=== PATIENT | female | born 1955 | race Caucasian/White ===

== ENCOUNTER 2016-06-13 08:47 | Emergency (ER) | payer MEDICAID, OTHER ==
[2016-06-13 09:01] VITALS: RESP 16; TEMP 97.5
--- NOTE | 2016-06-13 10:30 | EDPHY ---
H & P Stated Complaint: [facility] fall Time Seen by Provider: 06/13/16 09:35 HPI/ROS: CHIEF COMPLAINT: right shoulder pain post mechanical fall HISTORY OF PRESENT ILLNESS: 60-year-old female arrives via ambulance complaining of acute right shoulder and humerus pain after she sustained a mechanical fall this morning. States that she slipped on the grass and landed on her right shoulder. No head injury. No loss of consciousness. This was a mechanical not a syncopal episode. No chest pain or dyspnea. No back pain or or C-spine pain. Patient has multiple medical comorbidities and has recently moved to [place] from [place], has not established primary care or primary mental health care. She has a history of schizophrenia, diabetes, COPD, home oxygen dependent. She has been borrowing a friend's oxygen concentrator. She recently became homeless and therefore moved to [place] to live with a family member.Denies suicidal homicidal ideation PRIMARY CARE PROVIDER: none locally establish REVIEW OF SYSTEMS: A ten point review of systems was performed and is negative with the exception of the items mentioned in the HPI PAST MEDICAL & SURGICAL HISTORY: Diabetes. Schizophrenia. Hypertension. Soup ED. Home oxygen dependent. SOCIAL HISTORY:daily cigarette smoker PHYSICAL EXAM (Prior to examination, patient consented to physical exam, hands were washed and my usual and customary physical exam procedures followed) 1) GENERAL: obese, alert and oriented. Appears to be in no acute distress. 2) HEAD: Normocephalic, atraumatic 3) HEENT: Pupils equal, round, reactive to light bilaterally. Sclera anicteric. 4) NECK: Full range of motion, no meningeal signs. 5) LUNGS: Clear auscultation bilaterally, no wheezes, no rhonchi, no retractions. 6) HEART: Regular rate and rhythm, no murmur, no heave, no gallop. 7) ABDOMEN: No guarding, no rebound, no focal tenderness, negative McBurney's, negative Thompson's, negative Rovsing's, negative peritoneal sign, 8) MUSCULOSKELETAL:Right upper extremity: Tender to palpation proximal humerus and shoulder. Limited range of motion secondary to pain. Intact skin. No gross deformity or step-off. Distal pulses radial ulnar median nerve function intact. 9) BACK: no visual or palpable abnormality. 10) SKIN: No rash, no petechiae. 11) Psychiatric: Patient is oriented X 3, there is no agitation. DIFFERENTIAL DIAGNOSIS: in no particular include but limited to fracture, dislocation, sprain, strain - Personal History Current Tetanus Diphtheria and Acellular Pertussis (TDAP): Unsure - Medical/Surgical History Hx Asthma: Yes Hx Chronic Respiratory Disease: Yes Hx Diabetes: Yes Hx Cardiac Disease: No Hx Renal Disease: No Hx Cirrhosis: No Hx Alcoholism: No Hx HIV/AIDS: No Hx Splenectomy or Spleen Trauma: No - Social History Smoking Status: Current every day smoker Constitutional: Initial Vital Signs Temperature (C) 36.4 C 06/13/16 08:59 Heart Rate 74 06/13/16 08:59 Respiratory Rate 16 06/13/16 08:59 Blood Pressure 100/62 06/13/16 08:59 O2 Sat (%) 84 L 06/13/16 08:59 O2 Delivery Mode Room Air Allergies/Adverse Reactions: aspirin Allergy (Verified 06/13/16 09:06) gabapentin Allergy (Verified 06/13/16 09:05) ibuprofen Allergy (Verified 06/13/16 09:07) pregabalin [From Lyrica] Allergy (Verified 06/13/16 09:06) Home Medications: Medication Instructions Recorded ALPRAZolam 0.5 mg PO BID 06/13/16 ALPRAZolam [Xanax 0.5 MG (*)] 0.5 mg PO BID #4 tab 06/13/16 Asenapine Maleate [Saphris] 5 mg SL BID #4 tab.subl 06/13/16 Atorvastatin Calcium 20 mg PO DAILY 06/13/16 Diclofenac 0.1% 2 gm TD QID PRN 06/13/16 Losartan Potassium 50 mg PO DAILY 06/13/16 Metformin 1000 mg 1,000 mg PO BID 06/13/16 Mometasone Furoate 50 mcg IH 06/13/16 Proair Hfa 90 mcg IH Q4-6PRN PRN 06/13/16 Qvar 8 mcg IH 06/13/16 Ranitidine HCl 150 mg PO BID 06/13/16 Saphris 5 mg SL BID 06/13/16 traZODONE 50MG (*) 50 mg PO HS 06/13/16 traZODone [traZODONE 50MG (*)] 50 mg PO HS #2 tab 06/13/16 Medical Decision Making - Diagnostics Imaging Results: Imaging Impressions Humerus X-Ray 06/13/16 10:02 Impression: Acute partially comminuted displaced fracture of the proximal shaft of the right humerus, as-detailed above. RIGHT HUMERUS (2 Views, at 10:15 AM): Again, there is a laterally displaced fracture involving the proximal one-third humeral diaphyseal shaft. The fracture lines extend to the surgical neck. The more distal aspects of the humerus are intact, and the visualized portions of the elbow are unremarkable. Impression: Displaced proximal humeral diaphyseal fracture, extending to the surgical neck. Shoulder X-Ray 06/13/16 10:02 Impression: Acute partially comminuted displaced fracture of the proximal shaft of the right humerus, as-detailed above. RIGHT HUMERUS (2 Views, at 10:15 AM): Again, there is a laterally displaced fracture involving the proximal one-third humeral diaphyseal shaft. The fracture lines extend to the surgical neck. The more distal aspects of the humerus are intact, and the visualized portions of the elbow are unremarkable. Impression: Displaced proximal humeral diaphyseal fracture, extending to the surgical neck. Procedures: Procedure: Fracture treatment. The patient had x-rays taken and I confirmed that the patient had a fractured proximal humerus. an upper extremity sling was applied by ER automotive exhaust emissions technician. After application of the splint I returned and re-examined the patient. The splint was adequately immobilizing the joint and distal to the splint the patient's circulation and sensation were intact. Patient shows no signs of compartment syndrome. Was given orthopedic precautions. ED Course/Re-evaluation: 10:30 a.m.: Phone consultation with orthopedic SALTY Arellano who reviewed the patient's images remotely and recommended sling and follow up in office next week (today is ). Case discussed Dr. Loulou Mckeon in ER. 10:55 a.m.: Re-evaluation. Patient placed in sling. She feels comfortable being discharged. The gearcase assembler has ranged for appointment with orthopedics for next week and for [facility] ([facility]). In the meantime patient requests a refill of her alprazolam, Saphris, trazodone. I have given her sufficient supply until her appointment [facility]. Regarding her home oxygen she currently is borrowing a friend's oxygen concentrator and can speak to the [facility] provider about obtaining further home oxygen supplies at her appointment tomorrow. Departure - Departure Disposition: Home, Routine, Self-Care Clinical Impression: Medication refill Proximal humerus fracture Qualifiers: Encounter type: initial encounter Fracture type: closed Fracture morphology: other fracture Fracture alignment: displaced Laterality: right Qualified Code(s) : S42.291A - Other displaced fracture of upper end of right humerus, initial encounter for closed fracture Condition: Good Instructions: Arm Fracture in Adults (ED) Additional Instructions: You have an appointment at [facility], on June 13, at 11:40. [address] [place] [address]. . Please arrive 20 minutes early, to fill out paperwork. You also have an appointment on June 18, at 0845, at [facility]. [id number], [phone]. Please arrive early to fill out paperwork. In addition, bring Medicaid information, and identification. Referrals: Jennifer Arellano MD [Medical Doctor] - 06/18/16 8:45 am (You have an appointment with Dr. Arellano on 06/18/2016 at 8:45 a.m.. Please keep this appointment. Wear your sling until then.) [facility],. [Clinic] - 06/14/16 11:40 am (Please keep this appointment at the [facility]. Arrive at least 15 minutes early to complete paperwork) Prescriptions: ALPRAZolam [Xanax 0.5 MG (*)] 0.5 mg PO BID #4 tab Asenapine Maleate [Saphris] 5 mg SL BID #4 tab.subl traZODone [traZODONE 50MG (*)] 50 mg PO HS #2 tab
[2016-06-13 11:18] VITALS: BP 90/58; PULSE 67; O2SAT 93
== END 2016-06-13 11:16 | disposition home or self-care (01) ==
LOC: EDUNIT#
DX: S42.291A Other displaced fracture of upper end of right humerus, initial encounter for closed fracture (principal); E11.9 Type 2 diabetes mellitus without complications; I10 Essential (primary) hypertension; F17.210 Nicotine dependence, cigarettes, uncomplicated; J44.9 Chronic obstructive pulmonary disease, unspecified; Z76.0 Encounter for issue of repeat prescription; Z79.84 Long term (current) use of oral hypoglycemic drugs; W01.198A Fall on same level from slipping, tripping and stumbling with subsequent striking against other object, initial encounter
CPT/HCPCS: A4565

== ENCOUNTER → 2016-06-21 | Outpatient (CLI) | payer MEDICAID | LOC: FIMAGING 12:39 | PROVIDERS: ATTEND Physician Assistant | DX: S42.291A Other displaced fracture of upper end of right humerus, initial encounter for closed fracture (principal); X58.XXXA Exposure to other specified factors, initial encounter ==

== ENCOUNTER 2016-06-24 09:07 | Observation (INO) | payer MEDICAID ==
[2016-06-24] MEDS ORDERED: ROPIVACAINE HCL 20 MG/10 ML INJ EP ONE (09:17)
[2016-06-24] MEDS ORDERED: ceFAZolin 2 GM/DEXTROSE 100 ML IV ONE (09:30)
--- NOTE | 2016-06-24 10:14 | CPEKG ---
Heart Rate: 73 RR Interval: 822 P-R Interval: 148 QRSD Interval: 84 QT Interval: 400 QTC Interval: 441 P Sheridan: 52 QRS Sheridan: 73 T Wave Sheridan: 16 EKG Severity - NORMAL ECG - EKG Impression: SINUS RHYTHM Electronically Signed By: Jose Meadows 25-Jun-2016 06:51:28
[2016-06-24] MEDS ORDERED: fentaNYL 100 MCG/2 ML INJ ONE ×3 (10:48→13:44)
[2016-06-24] MEDS ORDERED: ONDANSETRON 4 MG/2 ML VIAL ONE (10:49)
[2016-06-24] MEDS ORDERED: ROPIVACAINE HCL 150 MG/30 ML INJ ONE (10:49)
[2016-06-24] MEDS ORDERED: PROPOFOL 200 MG/20 ML VIAL ONE (10:49)
[2016-06-24] MEDS ORDERED: METOCLOPRAMIDE 10 MG/2 ML VIAL ONE (10:49)
[2016-06-24] MEDS ORDERED: MIDAZOLAM 2 MG/2 ML VIAL ONE (10:53)
[2016-06-24] MEDS ORDERED: METOPROLOL TARTRATE 5 MG/5 ML INJ ONE (11:47)
[2016-06-24] MEDS ORDERED: ceFAZolin 1 GM VIAL ONE (13:01)
[2016-06-24] MEDS ORDERED: HYDROmorphONE/DILAUDID 1 MG/ML SYR IVP PRN (13:16)
[2016-06-24] MEDS ORDERED: ONDANSETRON 4 MG/2 ML VIAL IVP PRN (13:16)
[2016-06-24] MEDS ORDERED: ACETAMINOPHEN 325 MG TAB PO PRN (13:16)
[2016-06-24] MEDS ORDERED: PROAIR 90 MCG IH PRN (13:20)
[2016-06-24] MEDS ORDERED: D5W 1/2 NS W/ 20 KCl/L 1,000 ML IV SCH (13:30)
--- NOTE | 2016-06-24 13:58 | GOP ---
[f rep st] OPERATIVE REPORT DATE OF OPERATION: SURGEON: Jeremiah Diaz MD COOK HELPER DESSERT: Vinh Maloney PA-C. Medically required for positioning of the arm during humeral nail and open rotator cuff repair. PREOPERATIVE DIAGNOSIS: 1. Right comminuted proximal humerus fracture. 2. Rotator cuff tear. POSTOPERATIVE DIAGNOSIS: 1. Right comminuted proximal humerus fracture. 2. Rotator cuff tear. PROCEDURE PERFORMED: 1. Open rotator cuff repair. 2. Intramedullary nail multilock Synthes humeral nail, right humerus. FINDINGS: ESTIMATED BLOOD LOSS: Minimal. INDICATIONS: The patient is a 60-year-old female who had a mechanical fall. Had x-rays and a CT sc an that showed proximal humerus fracture with a split proximal humeral shaft fracture. Neurovascula rly intact. CT scan showed greater tuberosity linear fracture that was nondisplaced. The patient e lected for operative intervention of unstable humerus fracture. DESCRIPTION OF PROCEDURE: The patient was identified in the preoperative holding area. Her mother was available at the bedside. All questions were answered. The right upper extremity was identifie d. She had bruising medially. She had intact EPL, FPL, interossei, locks tender, wrist extension, and wris t flexion. The patient brought into the operating room. Beach chair position. Interscalene block. General an esthesia. All extremities well padded. The right upper extremity was prepped and draped in usual s terile fashion. Surgical time-out was performed. Anterolateral based incision was made. Sharp dis section down to the deltoid. Deltoid raphe split. Rotator cuff had a rotator cuff tear, and we use d this tear to access and opened up the tear of the supraspinatus to access the central portion of t he articular side of the humeral head on the superior articular surface. We put 2 tagging stitches for repair later. On fluoroscopic view from the contralateral side with the rainbow view, we were a ble to get internal and external rotation views and had nice central position on the humeral head. We placed a golf ball tipped guidewire. Tried it under closed reduction techniques, however, the fr acture fragments were overlapping, so we made a small incision laterally. Blunt dissection down to the humerus and guided the guidewire in to the distal fragment. We used GetFresh reamers 6, 7, 7.5, 8 and went to the Synthes reamers 8.5 reamer. We placed a 7 nail after we measured this to about 19 5. We placed multiple screws in the proximal portion and a single screw distally. We confirmed on fluoroscopic views reduction of the fracture. No evidence of further splitting of the greater tuber osity or of the head. All wounds were copiously washed out with 500 cc of warm normal saline. 2-0 PDS for the bigger wounds, 3-0 Monocryl for the smaller wounds and nael. Xeroform, 4 x 4's, ABD, and Medipore tape applied. Another gram of Ancef was given postop. IMPLANTS USED: A Synthes multilock humeral nail. COMPLICATIONS: None. DISPOSITION: Extubated to the PACU in stable condition. /[id number]/MODL
[2016-06-24] MEDS ORDERED: ALBUTEROL 60 PUFFS/8 GM MDI IH PRN (14:44)
[2016-06-24] MEDS: HYDROCODONE/APAP 5/325 TAB PO PRN (14:56)
[2016-06-24] MEDS: metFORMIN HCL 500 MG TAB PO SCH (18:29)
[2016-06-24] MEDS: ceFAZolin 2 GM/DEXTROSE 100 ML IV SCH (18:29)
[2016-06-24] MEDS: KETOROLAC 30 MG/1 ML SDV IVP SCH ×2 (18:30→23:07)
[2016-06-24] MEDS: DOCUSATE SODIUM 100 MG CAP PO SCH (19:42)
[2016-06-24] MEDS: FAMOTIDINE 20 MG TAB PO SCH (19:43)
[2016-06-24] MEDS ORDERED: METFORMIN 1000 MG PO SCH (21:00)
[2016-06-24] MEDS ORDERED: MOMETASONE FUROATE 50 MCG IH SCH (21:00)
[2016-06-24] MEDS ORDERED: SAPHRIS 5 MG SL SCH (21:00)
[2016-06-24] MEDS ORDERED: NASONEX EACHNARE SCH (21:00)
[2016-06-24] MEDS ORDERED: TRAZODONE 50 MG PO SCH (21:00)
[2016-06-24] MEDS ORDERED: QVAR IH SCH (21:00)
[2016-06-24] MEDS ORDERED: ASENAPINE MALEATE 5 MG SUBLINGUAL TAB SL SCH (21:00)
[2016-06-24] MEDS ORDERED: traZODone 50 MG TAB PO SCH (21:00)
[2016-06-24] MEDS ORDERED: RANITIDINE HCL 150 MG PO SCH (21:00)
[2016-06-24] MEDS ORDERED: MOMETASONE FUROATE 50 MCG EACHNARE SCH (21:00)
[2016-06-24] MEDS: BECLOMETHASONE QVAR 80 MDI IH SCH (21:35)
[2016-06-24] MEDS: AZELASTINE NASAL MDI EACHNARE SCH (23:07)
[2016-06-24] MEDS: ASENAPINE MALEATE 5 MG SUBLINGUAL TAB SL SCH (23:08)
[2016-06-25] MEDS: ceFAZolin 2 GM/DEXTROSE 100 ML IV SCH (02:51)
[2016-06-25] MEDS: KETOROLAC 30 MG/1 ML SDV IVP SCH ×2 (05:23→11:56)
[2016-06-25 07:10] VITALS: PULSE 97; RESP 16; TEMP 98.7; O2SAT 96
[2016-06-25] MEDS: HYDROCODONE/APAP 5/325 TAB PO PRN ×2 (07:34→13:46)
[2016-06-25] MEDS ORDERED: LOSARTAN POTASSIUM 50 MG TAB PO SCH (09:00)
[2016-06-25] MEDS ORDERED: LOSARTAN POTASSIUM 50 MG PO SCH (09:00)
[2016-06-25] MEDS ORDERED: FLUoxetine 20 MG CAP PO SCH (09:00)
[2016-06-25] MEDS ORDERED: ATORVASTATIN CALCIUM 20 MG PO SCH (09:00)
[2016-06-25] MEDS ORDERED: ENOXAPARIN 40 MG/0.4 ML SYR SC SCH (09:00)
[2016-06-25] MEDS: metFORMIN HCL 500 MG TAB PO SCH (09:06)
[2016-06-25] MEDS: FAMOTIDINE 20 MG TAB PO SCH (09:08)
[2016-06-25] MEDS: DOCUSATE SODIUM 100 MG CAP PO SCH (09:08)
[2016-06-25] MEDS: ASENAPINE MALEATE 5 MG SUBLINGUAL TAB SL SCH (09:08)
[2016-06-25] MEDS: AZELASTINE NASAL MDI EACHNARE SCH (09:10)
[2016-06-25] MEDS: BECLOMETHASONE QVAR 80 MDI IH SCH (09:10)
[2016-06-25 09:11] VITALS: BP 117/72
--- NOTE | 2016-06-25 11:15 | SOAPPROG ---
[facility]NA[facility] Progress Note Assessment/Plan: Assessment: 60 yo female pod #1 s/p right humerus ORIF IMN -discharge home today -continue incentive spirometry -continue NWB RUE, may do pendulum swings -continue flight crew time clerk sling use -f/u w/ dr. hansen or staff in 1 week for recheck -pain medications as per patients folder from [facility] Subjective: Patient reports no issues overnight, slept well, pain is well controlled, denies cp/sob. denies numbness/tingling. voiding freely and passing gas, but no BM yet Objective: Vital Signs Temp Pulse Resp BP Pulse Ox 37.1 C 97 16 117/72 96 06/25/16 07:10 06/25/16 07:10 06/25/16 07:10 06/25/16 09:10 06/25/16 07:10 06/24/16 06/25/16 06/26/16 05:59 05:59 05:59 Intake Total 2410 Output Total 450 650 Balance 1960 -650 dressings c/d/i, appropriately ttp over surgical sites w/ intact sensation over deltoid/axilla, full elbow rom and full wrist/digital rom, including wrist extension, radial/ulnar pulse 2+ - Pending Discharge Pending Discharge Within 24 Hours: Yes Pending Discharge Date: 06/26/16 Pending Discharge Time: 11:00 Physical Exam - Physical Exam General Appearance: WD/WN, alert, no apparent distress ICD10 Worksheet Patient Problems: Problems Problem Status Onset Right humeral fracture Acute - ICD10 Problem Qualifiers (1) Right humeral fracture Qualifiers: Encounter type: subsequent encounter Humerus Location: proximal Fracture type: closed Fracture morphology: F Fracture alignment: F Salter-Han Fracture Type: S Fracture healing: F
[2016-06-25] MEDS ORDERED: ATORVASTATIN CALCIUM 20 MG TAB PO SCH (22:00)
== END 2016-06-25 14:09 | disposition home or self-care (01) ==
LOC: FSGY 09:07 → F3N 13:16
PROVIDERS: ADMIT Orthopaedic Surgery; ATTEND Orthopaedic Surgery
PROC: 0PH Upper Bones, Insertion (ICD-10-PCS; principal; 2016-06-24 11:00)
PROC: 0LQ10ZZ Repair Right Shoulder Tendon, Open Approach (ICD-10-PCS; principal; 2016-06-24 11:00)
DX: S42.354A Nondisplaced comminuted fracture of shaft of humerus, right arm, initial encounter for closed fracture (principal); S46.011A Strain of muscle(s) and tendon(s) of the rotator cuff of right shoulder, initial encounter; J44.9 Chronic obstructive pulmonary disease, unspecified; I10 Essential (primary) hypertension; E11.9 Type 2 diabetes mellitus without complications; W19.XXXA Unspecified fall, initial encounter
CPT/HCPCS: 23410; 24530; 73030; 76001; 93005; C1769; G0378; C1713; J0690; J1650; J1885; J2250; J2405; J2704; J2765; J2795; J3010